=== PATIENT | female | born 1980 | race Caucasian/White ===

== ENCOUNTER 2017-05-04 15:06 | Observation (INO) ==
[2017-05-04] MEDS ORDERED: G.I. COCKTAIL ONE (15:42)
--- NOTE | 2017-05-04 15:43 | EKG Report ---
Test Performed on : 05/04/2017 3:36:03 PM Test Reason : CP Blood Pressure : / mmHG Vent. Rate : 094 BPM Atrial Rate : 094 BPM P-R Int : 116 ms QRS Dur : 084 ms QT Int : 360 ms P-R-T Axes : 056 046 048 degrees QTc Int : 450 ms Normal sinus rhythm. Normal ECG No previous ECGs available Unconfirmed Result
[2017-05-04 15:52] LABS: BASO% 0.3 % (0.0-0.8); EOS# 0.28 X1000 (0.0-0.7); EOS% 3.1 % (0.0-10.0); HEMATOCRIT 25.8 % (37.0-47.0); HEMOGLOBIN 7.2 g/dL (12.0-16.0); IMM GRAN# 0.02 X1000 (0.0-0.04); IMM GRAN% 0.2 % (0.0-0.5); LYMPH# 0.66 X1000 (1.2-3.4); LYMPH% 7.3 % (20.5-51.1); MANUAL DIFF NEEDED? NO; MCH 20.3 PG (27-31); MCHC 27.9 g/dL (33-37); MCV 72.7 FL (81-99); MONO# 0.54 X1000 (0.11-0.59); MONO% 5.9 % (1.7-9.3); MPV 8.5 FL (7.4-10.4); NEUT% 83.2 % (42.2-75.2); PLT 436 X1000 (130-400); RBC 3.55 XMIL (4.2-5.4)
--- NOTE | 2017-05-04 15:52 | PROVIDER DOCUMENTATION ---
HPI-Chest Pain - General Chief Complaint: Chest Pain Stated Complaint: CHEST PAIN Time Seen by Provider: 05/04/17 15:25 Source: patient Allergies/Adverse Reactions: Patient Allergies Allergy/AdvReac Type Severity Reaction Status Date / Time No Known Allergies Allergy Verified 05/04/17 16:00 Home Medications: Home Medication List Medication Instructions Recorded Confirmed Last Taken Type NK [No Home Medications] 05/04/17 05/04/17 Unknown History - History of Present Illness-CP Nature of Presenting Problem: patient is 37 yo F that presents with 2 days of chest pain/epigastric pain worse with breathing. Denies n/v, fever/chills. Denies rectal bleeding. history of Crohns dz Location: reports: central, epigastric Chest Pain Radiation: reports: no radiation Quality of Pain: reports: indigestion, sharp Severity in ED: mild Onset/Duration: abrupt, 24 hours ago Timing: still present, constant Context/Activities at Onset: reports: none Modifying Factors: worse with: breathing Associated Symptoms: reports: abdominal pain, heartburn. denies: back pain, fever/chills, nausea, vomiting Aspirin Treatment Today: no aspirin today (no ASA due to more epigastric pain) Prior Chest Pain/Cardiac Workup: reports: no prior chest pain Similar Symptoms Previously?: No Recently Seen Here or By Another Healthcare Provider: No Review of Systems - Adult - REVIEW OF SYSTEMS - ADULT Constitutional: denies: chills, fever Eyes: reports: no symptoms reported Ears, Nose, Mouth & Throat: denies: ear pain, sinus problem, hoarseness Cardiovascular: reports: chest pain. denies: orthopnea Respiratory: reports: pleurisy. denies: shortness of breath, wheezing Gastrointestinal: reports: abdominal pain. denies: diarrhea, nausea, vomiting Genitourinary: reports: no symptoms reported Musculoskeletal: reports: no symptoms reported Integumentary: reports: no symptoms reported Neurological: reports: no symptoms reported Psychiatric: reports: no symptoms reported Endocrine: reports: no symptoms reported Hematologic/Lymphatic: reports: no symptoms reported Allergic/Immunologic: reports: no symptoms reported All Other Systems: Reviewed and Negative Past History - Adult - PAST MEDICAL HISTORY-ADULT Review of Records: reports: Old Records Reviewed, Nursing Assessment Review, Medications Reviewed Gastrointestinal: reports: Crohn's - PRIOR SURGERIES/PROCEDURES Surgical/Procedure History: reports: BTL, - IMMUNIZATION STATUS Childhood Immunizations: See Nurse Assessment Flu Vaccine: See Nurse Assessment - FAMILY HISTORY Family History: reviewed, not pertinent - SOCIAL HISTORY Smoking: cigarettes, less than 1 pack/day Living Situation: family Physical Exam-General - PHYSICAL EXAM-ADULT Initial Vital Signs Reviewed: Yes - CONSTITUTIONAL General Appearance: alert, no apparent distress - EYES Eyes: PERRL/EOMI, pink conjunctivae - HEAD, EARS, NOSE, MOUTH & THROAT HENMT: normocephalic/atraumatic, moist mucous membranes, normal ENT inspection - NECK Neck: full range of motion, normal inspection - RESPIRATORY Respiratory: chest non-tender, lungs clear, normal breath sounds, no respiratory distress, no accessory muscle use - CARDIOVASCULAR Cardiovascular: regular rate, rhythm, no edema, no murmur - GASTROINTESTINAL (ABDOMEN) Abdominal Exam: normal bowel sounds, soft, no organomegaly, no pulsatile mass, tenderness (Epigastric). negative: McBurney's point tenderness, Ling's sign - MUSCULOSKELETAL Back Exam: no CVA tenderness, no vertebral tenderness Extremity: normal range of motion, normal inspection, no pedal edema - SKIN Integumentary: normal color, warm/dry - NEUROLOGIC Neurologic: grossly normal, no motor/sensory deficits - PSYCHIATRIC Psych/Mental Status: normal mood/affect, normal thought content, normal thought process, oriented x 3 Progress - PLAN OF CARE/RESULTS Progress/Plan/Lab Results: Vital Signs - 8 hr 05/04/17 15:15 Temperature 99.1 F Pulse Rate 101 H Respiratory Rate 18 Blood Pressure 118/073 O2 Sat by Pulse Oximetry 95 Laboratory Results - last 24 hr 05/04/17 05/04/17 05/04/17 15:29 15:29 15:29 WBC 9.10 RBC 3.55 L Hgb 7.2 L Hct 25.8 L MCV 72.7 L MCH 20.3 L MCHC 27.9 L RDW Std Deviation 18.6 H Plt Count 436 H MPV 8.5 Immature Gran % (Auto) 0.2 Neut % (Auto) 83.2 H Lymph % (Auto) 7.3 L [place] % (Auto) 5.9 Eos % (Auto) 3.1 Baso % (Auto) 0.3 Immature Gran # (Auto) 0.02 Neut # (Auto) 7.57 H Lymph # (Auto) 0.66 L [place] # (Auto) 0.54 Eos # (Auto) 0.28 Baso # (Auto) 0.03 Sodium 136 Potassium 4.2 Chloride 105 Carbon Dioxide 22 L Anion Gap 9 BUN 12 Creatinine 0.6 Estimated GFR/1.73 m2 > 60 BUN/Creatinine Ratio 20 Glucose 94 Calculated Osmolality 271 Calcium 8.5 L Total Bilirubin < 0.15 L AST 8 L ALT 5 L Alkaline Phosphatase 74 Creatine Kinase 37 Troponin T < 0.010 Total Protein 7.2 Albumin 3.6 Globulin 4.0 Albumin/Globulin Ratio 1.0 Amylase Lipase Stool Occult Blood 05/04/17 05/04/17 15:56 16:32 WBC RBC Hgb Hct MCV MCH MCHC RDW Std Deviation Plt Count MPV Immature Gran % (Auto) Neut % (Auto) Lymph % (Auto) [place] % (Auto) Eos % (Auto) Baso % (Auto) Immature Gran # (Auto) Neut # (Auto) Lymph # (Auto) [place] # (Auto) Eos # (Auto) Baso # (Auto) Sodium Potassium Chloride Carbon Dioxide Anion Gap BUN Creatinine Estimated GFR/1.73 m2 BUN/Creatinine Ratio Glucose Calculated Osmolality Calcium Total Bilirubin AST ALT Alkaline Phosphatase Creatine Kinase Troponin T Total Protein Albumin Globulin Albumin/Globulin Ratio Amylase 37 Lipase 33 Stool Occult Blood NEGATIVE Orders Category Date Time Status CHEST-2 VIEWS [RAD] Stat Exams 05/04/17 15:20 Completed US GB < RUQ (LIMITED) [US] Stat Exams 05/04/17 15:43 Completed AMYLASE [CHEM] Stat Lab 05/04/17 15:56 Completed CBC WITH ELECTRONIC DIFF [HEME] Stat Lab 05/04/17 15:29 Completed CK PROFILE [SP CHEM] Stat Lab 05/04/17 15:29 Completed COMPREHENSIVE METABOLIC PANEL [CHEM] Stat Lab 05/04/17 15:29 Completed LIPASE [CHEM] Stat Lab 05/04/17 15:56 Completed OCCULT BLOOD SCREEN STOOL PL Stat Lab 05/04/17 16:32 Completed TROPONIN T Stat Lab 05/04/17 15:29 Completed Lido/Sharp Alk/Al&mg Hydrox [G.i. Cocktail] Med 05/04/17 15:42 Discontinued 30 ml .ROUTE .STK-MED ONE Lido/Sharp Alk/Al&mg Hydrox [G.i. Cocktail] Med 05/04/17 16:19 Discontinued 30 ml PO NOW ONE EKG [EKG] Stat Ther 05/04/17 15:20 Draft Result Diagrams: 05/04/17 15:29 05/04/17 15:29 - EKG 1 Time of EKG reading by physician:: 15:36 EKG Read and Signed by:: Jerome Carias EKG Interpretation (*Must complete 3 of following elements*): Normal Rate: 94 Rhythm: NSR [place]: normal QRS: normal [place] Interval: normal ST Wave: normal - CONSULTS/PCP/HOSPITALIST Notification #1 *Consult/PCP/Hospitalist*: Time Discussed: 17:00 Consult Disposition: Admit Departure - Departure Date of Disposition Decision: 05/04/17 Time of Disposition Decision: 17:01 DIAGNOSIS: Crohn's disease, Anemia, RUQ pain Disposition: ADMITTED INPATIENT 09 Certified Medical Emergency: Emergent Condition: Stable Referrals and Follow-Ups: None,PCP [Primary Care Provider] - - Critical Care Note This patient required my direct & personal management of CC.: No Attestation - Physician/ MARY Attestation The physician spent face to face time with patient:: Yes Advanced Practice Provider documentation review:: Supervising physician onsite and consulted in the evaluation and care of this patient. The physician did have a face to face encounter with the patient.
--- NOTE | 2017-05-04 16:05 | Diag Imaging Result Doc PS360 ---
EXAM: CHEST-2 VIEWS - 05/04/2017 HISTORY: CP TECHNIQUE: Chest two views COMPARISON: None. FINDINGS: Heart size is normal. The lungs appear clear. There is no pleural effusion or pneumothorax identified. IMPRESSION: No evidence of acute disease. Electronically signed by Louie Kidd 05/04/2017 4:03 PM
[2017-05-04] MEDS ORDERED: G.I. COCKTAIL PO ONE (16:19)
[2017-05-04 16:35] LABS: AGAP 9; ALBUMIN 3.6 g/dL (3.5-5.0); ALKALINE PHOSPHATASE 74 U/L (32-104); BUN 12 mg/dL (8-22); CALCIUM 8.5 mg/dL (8.8-10.2); CHLORIDE 105 mmol/L (98-107); CK PROFILE 37 U/L (24-173); COSMO 271; GOT 8 U/L (10-30); GPT 5 U/L (10-36); POTASSIUM 4.2 mmol/L (3.5-5.1); SODIUM 136 mmol/L (136-145); TCO2 22 mmol/L (25-35); TOTAL BILIRUBIN < 0.15 mg/dL (0.20-1.00); TOTAL PROTEIN 7.2 g/dL (6.3-8.3)
[2017-05-04 16:36] LABS: AMYLASE 37 U/L (20-200); LIPASE 33 U/L (13-60)
--- NOTE | 2017-05-04 16:38 | Diag Imaging Result Doc PS360 ---
EXAM: US GB < RUQ (LIMITED) - 05/04/2017 HISTORY: epigastric pain TECHNIQUE: Ultrasound gallbladder COMPARISON: None. FINDINGS: The gallbladder is partially contracted. The gallbladder marcos appear mildly thickened at 4 mm, but may be exaggerated by the partially contracted state. There are no gallstones identified. There is no pericholecystic fluid identified. The technologist reports negative sonographic Ling's sign. The common bile duct is normal caliber at 4 mm. There are no abnormalities of the liver or right kidney identified. Doppler image shows hepatopedal flow in the portal vein. The pancreas is partially obscured by artifacts from bowel gas, but visualized portions of the pancreas are unremarkable. Abdominal aorta appears normal caliber. IMPRESSION: Partially contracted gallbladder. Questionable mild thickening of the gallbladder marcos versus exaggeration by the partially contracted state. There are no gallstones identified. The common bile duct is normal caliber at 4 mm. Electronically signed by Louie Kidd 05/04/2017 4:35 PM
[2017-05-04 16:43] LABS: OCCULT BLOOD 1 NEGATIVE (NEGATIVE)
--- NOTE | 2017-05-04 20:26 | Diag Imaging Result Doc PS360 ---
CT ABD/PELVIS W/PO AND IV CON - 05/04/2017 INDICATION: epigastric pain, crohns dz TECHNIQUE: A CT dose reduction protocol was used. COMPARISON: 05/26/2015 FINDINGS: There is stable appearing wall thickening compatible with bowel inflammation at the terminal ileum and transverse colon. There is significant constipation of the ascending colon. Normal appendix. There is a small amount of pelvic free fluid. There is a 2.2 cm right ovarian cyst. Urinary bladder, uterus, and rectum are normal. Stable left renal cyst. Stable cyst in the liver. The gallbladder, pancreas, spleen, and adrenals are normal. Lung bases are clear and the heart size is normal. Bones are intact. IMPRESSION: 1. Apparently stable or recurrent inflammation of the terminal ileum and colon compatible with terminal ileitis and colitis. 2. Significant constipation of the ascending colon. 3. Small right ovarian cyst. Physiologic appearing pelvic free fluid. Electronically signed by Scar Covington 05/04/2017 8:24 PM
[2017-05-04] MEDS: ZOFRAN IV PRN (21:18)
[2017-05-04 23:06] LABS: BASO% 0.5 % (0.0-0.8); HEMOGLOBIN 7.7 g/dL (12.0-16.0); IMM GRAN# 0.01 X1000 (0.0-0.04); IMM GRAN% 0.1 % (0.0-0.5); LYMPH# 0.68 X1000 (1.2-3.4); LYMPH% 8.5 % (20.5-51.1); MANUAL DIFF NEEDED? NO; MCH 20.8 PG (27-31); MCHC 28.5 g/dL (33-37); MCV 72.8 FL (81-99); MONO# 0.56 X1000 (0.11-0.59); MPV 9.1 FL (7.4-10.4); NEUT% 78.9 % (42.2-75.2); PLT 462 X1000 (130-400); RBC 3.71 XMIL (4.2-5.4)
[2017-05-05 05:03] VITALS: BP 119/51
[2017-05-05 06:06] LABS: BASO% 0.4 % (0.0-0.8); EOS# 0.42 X1000 (0.0-0.7); EOS% 6.1 % (0.0-10.0); HEMATOCRIT 25.5 % (37.0-47.0); HEMOGLOBIN 7.1 g/dL (12.0-16.0); IMM GRAN# 0.02 X1000 (0.0-0.04); IMM GRAN% 0.3 % (0.0-0.5); LYMPH# 0.67 X1000 (1.2-3.4); LYMPH% 9.8 % (20.5-51.1); MANUAL DIFF NEEDED? NO; MCH 20.3 PG (27-31); MCHC 27.8 g/dL (33-37); MCV 73.1 FL (81-99); MONO# 0.57 X1000 (0.11-0.59); MONO% 8.3 % (1.7-9.3); MPV 8.7 FL (7.4-10.4); NEUT% 75.1 % (42.2-75.2); PLT 404 X1000 (130-400); RBC 3.49 XMIL (4.2-5.4)
[2017-05-05] MEDS: ZOFRAN IV PRN (12:09)
--- NOTE | 2017-05-05 17:56 | HISTORY AND PHYSICAL ---
CHIEF COMPLAINT: Chest pain. HISTORY OF PRESENT ILLNESS: Patient presented to the emergency department noting that she was having chest pain, epigastric pain the last 2 days. States she had some occasional nausea. Denies any fevers or chills. Denies any vomiting, denies any rectal bleeding. Does have a known history of Crohn disease but has not been on medications currently. ALLERGIES: No known drug allergies. MEDICATIONS: None. REVIEW OF SYSTEMS: As noted chest pain more so upper epigastric to midsternal chest pain, hurts occasionally to breathe, occasional nausea. Denies any vomiting. Denies any hematemesis, denies melena, hematochezia, denies diarrhea, constipation, denies any dysuria, frequency. Denies any upper respiratory type symptoms, denies any nasal congestion, headaches, blurred vision, denies any focalized numbness, tingling, weakness in her extremities. PAST MEDICAL HISTORY: Crohn disease , status post BTL and . FAMILY HISTORY: No family history of Crohn disease. SOCIAL HISTORY: Patient is . She continues to smoke approximately a pack a day. She has no previous history of heart disease. PHYSICAL EXAM: VITAL SIGNS: Temperature 99 degrees, pulse 101, respiratory 18, BP 118/73. GENERAL: Patient is awake, alert, oriented. She is currently in no real respiratory distress. HEENT: Normocephalic, atraumatic. [place]. NECK: Supple. CV: Regular rate. No appreciable murmurs. CHEST: Clear. Nonlabored. No wheezing. ABDOMEN: Soft, tender in the epigastric region. No guarding. No rebound. Positive bowel sounds. EXTREMITIES: Moves all extremities well. NEURO: No focal neurological changes. SKIN: Warm and dry. No rashes. LABS: WBC is 9, hemoglobin and hematocrit 7 and 25 with low MCV, low MCH. CMP is essentially normal. ASSESSMENT: 1. Chest pain. 2. Anemia, iron deficiency. 3. Crohn disease. PLAN: Will admit patient the hospital, rule out IN. Certainly expect this is going to be more epigastric and GI related pain. She does have some mild anemia, she thankfully was heme-positive in the ER. She notes that she has been told in the past that she was iron deficient anemia but she does not remember the last time her levels were checked. We will admit her to the hospital, rule out IN. Check serial hemoglobin and hematocrit, if all of these are normal then we will discharge her home. cc: Austen Ramsey MD
--- NOTE | 2017-05-06 04:37 | DISCHARGE SUMMARY ---
ADMISSION DATE: 05/04/2017 DISCHARGE DATE: 05/05/2017 DISCHARGE DIAGNOSES: 1. Chest pain, likely gastrointestinal related. 2. Epigastric pain. 3. Iron deficiency anemia. 4. Crohn's disease. CONSULTATIONS: None. PROCEDURES: None. BRIEF HOSPITAL COURSE: Patient is a 37-year-old female, who was admitted as noted on the HPI and treated in usual fashion. Placed on IV fluids, oxygen, and ruled out for a myocardial infarction. Serial hemoglobin and hematocrits s were checked and thankfully were negative. On discharge she notes that her chest pain is almost completely resolved. She is still having some, but is quite mild in nature. She denies any other symptoms. Notes that she ate lunch without any difficulty and is asking to go home. DISPOSITION: Patient will be discharged home. Discussed with her that she will need to followup outpatient with primary care of her choice. Discussed with her as well that since iron tablets cause her to be nauseated, she certainly should try vitamins with iron. If this is not tolerable, then she will need to talk to her doctor about potentially doing iron infusions. We will continue to follow. Further orders as needed. TIME SPENT: Thirty-five minutes was spent in total care. cc: Austen Ramsey MD
== END 2017-05-05 13:10 | disposition home or self-care (01) ==
LOC: P.ED 15:06 → P.MEDSURG 15:06 → SUATTDRO 17:25
PROVIDERS: ATTEND Family Medicine